=== PATIENT | female | born 1945 | race Hispanic/Latino ===

== ENCOUNTER → 2017-08-05 | Outpatient (CLI) | payer OTHER | END | disposition home or self-care (01) | LOC: RAH 08:07 | PROVIDERS: ATTEND Family Medicine | DX: Z12.31 Encounter for screening mammogram for malignant neoplasm of breast (principal) | CPT/HCPCS: 77067 ==

== ENCOUNTER → 2018-04-24 | Outpatient (CLI) | payer OTHER, MEDICARE | END | disposition home or self-care (01) | LOC: RAH 13:01 | PROVIDERS: ATTEND Family Medicine | DX: M79.605 Pain in left leg (principal) | CPT/HCPCS: 93971 ==

== ENCOUNTER → 2018-05-18 | Outpatient (CLI) | payer OTHER | END | disposition home or self-care (01) | LOC: OIH 13:27 | PROVIDERS: ATTEND Internal Medicine Cardiovascular Disease | DX: Z13.6 Encounter for screening for cardiovascular disorders (principal) | CPT/HCPCS: 75571 ==

== ENCOUNTER → 2018-06-09 | Outpatient (CLI) | payer OTHER ==
[~2018-06-09] VITALS: Ht 167.6 cm; Wt 116.1 kg
[~2018-06-09] MED LIST: REGADENOSON 0.4 MG/5 ML PF SYG IVP SCH
== END | disposition home or self-care (01) ==
LOC: SHCH 08:05
PROVIDERS: ATTEND Internal Medicine Cardiovascular Disease
DX: I25.10 Atherosclerotic heart disease of native coronary artery without angina pectoris (principal)
CPT/HCPCS: 78452; 93017; 96374; A9500 ×2; J2785

== ENCOUNTER → 2018-08-21 | Outpatient (CLI) | payer OTHER | END | disposition home or self-care (01) | LOC: RAH 09:35 | PROVIDERS: ATTEND Family Medicine | DX: Z12.31 Encounter for screening mammogram for malignant neoplasm of breast (principal) | CPT/HCPCS: 77067 ==

== ENCOUNTER → 2019-08-23 | Outpatient (CLI) | payer OTHER | END | disposition home or self-care (01) | LOC: RAH 10:24 | PROVIDERS: ATTEND Family Medicine | DX: Z12.31 Encounter for screening mammogram for malignant neoplasm of breast (principal) | CPT/HCPCS: 77067 ==

== ENCOUNTER 2024-12-12 11:15 | Inpatient (IN) | payer OTHER ==
[~2024-12-12] VITALS: Ht 167.6 cm; Wt 117.9 kg
--- NOTE | 2024-12-12 11:20 | NUR ---
PT GOING TO CT AT THIS TIME
--- NOTE | 2024-12-12 11:23 | ERN ---
General Chief Complaint: Stroke Symptoms Stated Complaint: STROKE SYMPTOMS Time Seen by MD: 11:19 Source: patient History of Present Illness Initial Comments Patient is a 79-year-old female coming in complaining of right facial numbness. Patient states that last night fell asleep without having these symptoms. Earlier this morning patient woke up with the symptoms. Allergies: Coded Allergies: No Known Drug Allergies (Verified Allergy, 11/06/12) Uncoded Allergies: MERY (Allergy, Mild, 11/08/12) ROS Dictation CONSTITUTIONAL: No chills, no fever, no weakness, no diaphoresis, no malaise. HEAD/FACE: No signs of trauma. EENT: No eye pain, no blurred vision, no tearing, no double vision, no ear pain, no ear discharge, no nose pain, no nasal congestion, no throat pain, no throat swelling, no mouth pain. RESPIRATORY: No cough, no orthopnea, no SOB, no stridor, no wheezing. CARDIOVASCULAR: No chest pain, no edema, no palpitations, no syncope. GASTROINTESTINAL/ABDOMINAL: No abdominal pain, no constipation, no diarrhea, no nausea, no vomiting. GENITOURINARY: No abnormal discharge, no dysuria, no frequent urination, no hematuria. No complaints of pain in the genitals. MUSCULOSKELETAL: No back pain, no gout, no joint pain, no joint swelling, no muscle pain, no muscle stiffness, no neck pain. INTEGUMENTARY: No change in color, no change in hair/nails, no dryness, no lesion, no lumps, no rash. NEUROLOGICAL/PSYCH: No anxiety, not depressed, no emotional problem, no headache, no numbness, no pre-existing deficit, no history of seizures, no tremors, no weakness. HEMATOLOGIC/LYMPHATIC: Not anemic, no history of blood clots, no apparent bleeding, no bruising, glands not swollen. All Systems Negative, Except as Noted. Physical Exam Physical Exam Dictation VITAL SIGNS: Reviewed. GENERAL APPEARANCE: Alert, oriented x3, no acute distress, obese. HEAD AND FACE: Non-traumatic. EYES: PERRL, pink conjunctivas, eyelid no trauma, anterior chamber clear. EARS: Pinnas intact and no signs of trauma or erythema. Ear canals clear and no discharge. TMs no erythema. NOSE: No discharge, no bleeding. OROPHARYNX: Mouth normal, teeth no caries, tongue pink. Pharynx clear, no erythema. Tonsils no exudates, no abscesses noted. Mucous membrane moist. NECK: Supple, non-tender, no thyromegaly, no masses, no JVD, no bruits. BREAST: Deferred. CHEST: No tenderness, no crepitus, no paradoxical movement, no retractions. LUNGS: Clear, well-ventilated, symmetric, no rales, no wheezing, no rhonchi, no stridor, good breath sounds bilaterally. HEART: Regular rate, regular rhythm, no murmur, no gallops. VASCULAR: No peripheral edema. ABDOMEN: Soft, positive bowel sounds, nondistended, no guarding, nontender, no rebound, no masses no hepatomegaly, no splenomegaly, no Koroma's sign, no her nias. RECTAL: Deferred. GENITAL: Deferred. NEUROLOGICAL: Normal speech, gross motor function intact, gross sensory function intact. MUSCULOSKELETAL: Neck nontender, full range of motion, back nontender, full range of motion. EXTREMITIES: Nontender, full range of motion. SKIN: Color pink, dry, no turgor, no rash, no lacerations, no abrasions, no contusions. LYMPHATICS: Deferred. Stroke Patient?: No Is Patient Candidate for t-PA?: No Did the Patient Receive t-PA?: No Contraindication for t-PA?: Medical Contraindication NIH STROKE SCALE: NIH STROKE SCALE Response (Comments) Value Level of Consciousness Alert 0 Ask patient month and their age Answers both correct 0 Command to open eyes, make fist and let go Obeys both correct 0 Best gaze (horizontal eye movement) Partial Gaze Palsy 1 Visual Field Testing No Visual Field Loss 0 Facial Paresis Partial Paralysis 2 Motor Function - Left Arm Normal 0 Motor Function - Right Arm Normal 0 Motor Function - Left Leg Normal 0 Motor Function - Right Leg Normal 0 Limb Ataxia No Ataxia 0 Sensory-pin prick to arms, legs, trunk and face Normal 0 Best Language (describe picture, name items and read) No Aphasia 0 Dysarthria (read several words) Normal Articulation 0 Extinction and Inattention Normal 0 Total 3 Results Laboratory and Microbiology Lab and Micro Result Laboratory Tests Test 12/12/24 11:19 12/12/24 11:32 12/12/24 13:25 Whole Blood Glucose 111 MG/DL (70-110) H White Blood Count 7.4 K/uL (4.8-10.8) Red Blood Count 4.43 MIL/uL (4.00-5.50) Hemoglobin 13.6 g/dL (12.0-16.0) Hematocrit 42.3 % (36-48) Mean Corpuscular Volume 95.5 fL (79-99) Mean Corpuscular Hemoglobin 30.7 pg (27.0-33.0) Mean Corpuscular Hemoglobin Concent 32.2 g/dL (32.0-36.0) Red Cell Distribution Width 12.2 % (11.0-15.5) Platelet Count 242 K/uL (130-400) Mean Platelet Volume 11.0 fL (7.5-10.5) H Immature Granulocyte % (Auto) 0.7 % (0-1) Neutrophils (%) (Auto) 52.6 % (40.0-77.0) Lymphocytes (%) (Auto) 31.2 % (21.0-51.0) Monocytes (%) (Auto) 12.5 % (3.0-13.0) Eosinophils (%) (Auto) 2.2 % (0.0-8.0) Basophils (%) (Auto) 0.8 % (0.0-5.0) Neutrophils # (Auto) 3.9 K/uL (1.8-7.7) Lymphocytes # (Auto) 2.3 K/uL (1.0-4.8) Monocytes # (Auto) 0.9 K/uL (0.1-1.0) Eosinophils # (Auto) 0.16 K/uL (0.00-0.70) Basophils # (Auto) 0.06 K/uL (0.00-0.20) Absolute Immature Granulocyte (auto 0.05 K/uL (0-1) Nucleated Red Blood Cells 0.0 % (0.0-0.19) Prothrombin Time 10.3 SEC (9.6-11.6) Prothromb Time International Ratio 0.97 (0.85-1.15) Activated Partial Thromboplast Time 27.3 SEC (26.3-35.5) Sodium Level 144 mmol/L (136-145) Potassium Level 3.8 mmol/L (3.5-5.1) Chloride Level 106 mmol/L (101-111) Carbon Dioxide Level 29 mmol/L (21-32) Blood Urea Nitrogen 16 mg/dL (7-18) Creatinine 0.7 mg/dL (0.5-1.0) Glomerular Filtration Rate Calc 88 mL/min (>90) Random Glucose 108 mg/dL (70-105) H Total Calcium 8.9 mg/dL (8.5-10.1) Total Creatine Kinase 28 U/L (21-232) Troponin I High Sensitivity 6 ng/L (4-50) LDL Cholesterol 149 mg/dL (0-99) H Urine Color LIGHT-YELLOW (YELLOW) Urine Appearance CLEAR (CLEAR) Urine pH 6.5 (5.0-8.0) Urine Specific [place] 1.010 (1.001-1.031) Urine Protein NEGATIVE mg/dL (NEGATIVE) Urine Glucose (UA) NEGATIVE mg/dL (NEGATIVE) Urine Ketones NEGATIVE mg/dL (NEGATIVE) Urine Occult Blood NEGATIVE (NEGATIVE) Urine Nitrate NEGATIVE (NEGATIVE) Urine Bilirubin NEGATIVE mg/dL (NEGATIVE) Urine Urobilinogen 0.2 mg/dL (0.2-1.0) Urine Leukocyte Esterase 250 [place]/uL (NEGATIVE) H Urine RBC 0-1 /HPF (0-1) Urine WBC 2-5 /HPF (0-1) H Urine Squamous Epithelial Cells RARE /HPF (0-2) Urine Non-Squamous Epithelial Cells <1 /HPF (0-2) Urine Bacteria None /HPF (None Seen) Labs Reviewed?: Yes EKG/XRAY/US/CT/MRI EKG Comment 12/12/2024 time 11:39 a.m. Ventricular rate [address] Sin[address] MD [address] wave elevation or depression X-RAY Comment IMAGING REPORT Signed PATIENT: XOCHITL HOUSER MR#: [id number] : 1945 SEX: F AGE: 79 LOCATION: [facility] ORDER [id number] STATUS: [facility] REPORT#: [id number] SERVICE [id number] REASON: stroke ORDERING PHYSICIAN: DIANE NASCIMENTO MD PROCEDURE: CXR1VW - CHEST 1VW EXAM: CR Chest, 1 View. CLINICAL HISTORY: stroke COMPARISON: None provided. FINDINGS: LUNGS: The lungs show no infiltrate or other acute finding. PLEURAL SPACES: No evidence of pleural effusion or pneumothorax. MEDIASTINUM: Cardiac size and mediastinal contours within normal limits. BONES: No aggressive appearing osseous lesion seen. IMPRESSION: No acute cardiopulmonary pathology is evident. /[place] DICTATED BY: QUIRINO SOOD Jr., MD DATE: 12/12/24 1351 ELECTRONICALLY SIGNED BY: QUIRINO SOOD Jr., MD DATE: 12/12/[address] Scan Comment [address] [address] IMAGING REPORT Signed PATIENT: XOCHITL HOUSER MR#: [id number] : 1945 SEX: F AGE: 79 LOCATION: [facility] ORDER [id number] STATUS: [facility] REPORT#: [id number] SERVICE 1116 REASON: RIGHT FACE NUMBNESS ORDERING PHYSICIAN: DIANE NASCIMENTO MD PROCEDURE: HEAD WO - CT HEAD/BRAIN W/O CONTRAST EXAM: Non-contrast CT examination of the Brain CLINICAL HISTORY: Right face numbness. TECHNIQUE: Thin collimated axial CT images of the brain were obtained, with sagittal and coronal reformatted images also submitted. CT scan done according to ALARA (As Low as Reasonably Achievable). CONTRAST USED: None. COMPARISON: None provided. FINDINGS: No acute intracranial abnormality is present. No acute cortical infarction, hemorrhage, mass, or mass effect. Small old ischemic changes in the left frontal periventricular white matter. No hydrocephalus or abnormal extra-axial fluid collections. The posterior fossa is unremarkable. The skull base and calvarium are intact. The included portions of the paranasal sinuses and left mastoid air cells are clear. Partial sclerosis of the right mastoid air cells. IMPRESSION: No acute intracranial abnormality is present. /[place] DICTATED BY: QUIRINO SOOD Jr., MD DATE: 12/12/24 1324 ELECTRONICALLY SIGNED BY: QUIRINO SOOD Jr., MD DATE: 12/12/24 1324 MDM MDM: Differential diagnosis: Ordoñez's palsy, CVA, UTI, hypertensive urgency, Rationale: Tests considered and ordered secondary to shared decision making include: labs, ECG and radiology Previous outside records reviewed: Old ER visits. Risk of complication and/or morbidity or mortality of patient management: None Medications-Per medication reconciliation Need for hospitalization: Patient does meet criteria for hospitalization. Need for emergency major/minor surgery: No There are no social concerns with this patient. Prescription drug management Prescriptions will include symptomatic care Patient's prior external medical records from other ER visits were reviewed by me as indicated. Prior testing and results from previous visits were reviewed. Prior tests were taken into account with medical decision making and resource utilization, independent historian/historians were used to obtain complete medical history. I independently interpreted the test that were performed, results were reviewed by me and considered findings on radiology if ordered. Medical management and examination interpretation discussions were had by me with other qualified healthcare professionals as indicated for the patient's care. Patient will be admitted under the care of [facility] for ongoing management. ED Course Orders Procedure Category Date Status Time Ct Head/Brain W/O CT 12/12/24 Resulted Contrast 11:16 Cbc With Differential LAB 12/12/24 Complete 11:19 Prothrombin Time With LAB 12/12/24 Complete INR 11:19 Partial LAB 12/12/24 Complete Thromboplastin Time 11:19 Chest 1vw RAD 12/12/24 Resulted 11:19 12 Lead Ekg Tracing- EKG 12/12/24 Complete Technical 11:19 Creatine Kinase, Total LAB 12/12/24 Complete 11:19 Ldl Direct LAB 12/12/24 Complete 11:19 Troponin I High LAB 12/12/24 Complete Sensitivity 11:19 Urinalysis Profile LAB 12/12/24 Complete 11:19 Bedside Glucose CPOE 12/12/24 Transmitted Fingerstick 11:19 Basic Metabolic Panel LAB 12/12/24 Complete 11:19 Clonidine Hcl 0.1 Mg PHA 12/12/24 Complete Tablet (Catapres 0. 12:30 Hydralazine 20mg Inj PHA 12/12/24 Complete (Apresoline 20mg In 13:30 Hydralazine 20mg Inj PHA 12/12/24 Complete (Apresoline 20mg In 13:30 Culture Urine NICOLE 12/12/24 In Process 13:45 Ceftriaxone 1g Vial PHA 12/12/24 In Process (Rocephine 1g Inj) 14:30 Current Medications Medications (Trade) Dose Ordered Sig/Estela Route PRN Reason Start Time Stop Time Status Last Admin Dose Admin Ceftriaxone Sodium (ROCEphine 1G INJ) 1 gm ONCE ONCE IVPB 12/12/24 14:30 12/12/24 14:31 Clonidine HCl (CATApres 0.1 mg TAB) 0.1 mg ONCE ONCE PO 12/12/24 12:30 12/12/24 12:31 DC 12/12/24 12:41 Hydralazine HCl (APRESOLine 20MG INJ) 10 mg ONCE ONCE IV 12/12/24 13:30 12/12/24 13:32 DC 12/12/24 13:44 Hydralazine HCl (APRESOLine 20MG INJ) 20 mg STK-MED ONCE .ROUTE 12/12/24 13:30 12/12/24 13:30 DC Vital Signs Date Time Temp Pulse Resp B/P (MAP) Pulse Ox O2 Delivery O2 Flow Rate FiO2 12/12/24 13:50 57 16 137/53 99 Room Air* 0 21 12/12/24 13:44 59 207/89 12/12/24 13:11 57 18 179/81 99 Room Air* 0 21 12/12/24 12:41 98.4 63 16 191/84 99 Room Air* 0 21 12/12/24 12:41 191/84 12/12/24 12:09 66 16 192/79 99 Room Air* 0 21 12/12/24 11:42 98.4 69 15 207/85 99 Room Air 0 12/12/24 11:42 98.4 65 16 207/85 99 Room Air* 0 21 Critical Care Note Comments Critical Care Procedure Note Authorized and Performed by: me Total critical care time: Approximately 36 minutes Due to a high probability of clinically significant, life threatening deterioration, the patient required my highest level of preparedness to intervene emergently and I personally spent this critical care time directly and personally managing the patient. This critical care time included obtaining a history; examining the patient; pulse oximetry; ordering and review of studies; arranging urgent treatment with development of a management plan; evaluation of patient's response to treatment; frequent reassessment; and, discussions with other providers. This critical care time was performed to assess and manage the high probability of imminent, life-threatening deterioration that could result in multi-organ failure. It was exclusive of separately billable procedures and treating other patients and teaching time. Please see MDM section and the rest of the note for further information on patient assessment and treatment. DX & DISP Disposition: Inpatient Decision to Admit Time: 14:21 Departure Impression: Primary Impression: UTI (urinary tract infection) Additional Impressions: Hypertensive emergency, Ordoñez's palsy Condition: Stable Referrals: JOSLYN SORIA MD (PCP) DIANE NASCIMENTO MD Dec 12, 2024 11:23
[2024-12-12 11:51] LABS: IMMATURE GRANULOCYTE ABSOLUTE 0.05 K/uL (0-1); NUCLEATED RED BLOOD CELLS 0.0 % (0.0-0.19); PLATELET COUNT (AUTO) 242 K/uL (130-400); RED BLOOD CELL COUNT(AUTO) 4.43 MIL/uL (4.00-5.50); RED CELL DISTRIBUTION WIDTH 12.2 % (11.0-15.5); WHITE BLOOD COUNT (AUTO) 7.4 K/uL (4.8-10.8)
--- NOTE | 2024-12-12 11:51 | CONS ---
CONSULT NOTE: [place] [facility] Note # Demographics Consult Type: Acute Stroke Level 2 (4.5-24 hrs) Patient Location: Emergency Room First Name: XOCHITL Last Name: CORRINA Date of : 1945 Age: 79 Gender: Female Facility: [facility] Time of Initial Page (Central Time): 12/12/2024 11:22 First Contact with Site (Central Time): 12/12/2024 11:22 # HPI History: 79 y/o woman with right facial weakness. Last normal yesterday at 8 PM. Similar symptoms previously. No pain behind the right ear. # Scores Time of exam and NIHSS (Central Time): 12/12/2024 11:35 Level of Consciousness 1a: [0] = Alert; keenly responsive LOC Questions 1b: [0] = Answers both questions correctly LOC Commands 1c: [0] = Performs both tasks correctly Best Gaze 2: [0] = Normal Visual 3: [0] = No visual loss Facial Palsy 4: [2] = Partial paralysis Motor Arm Left 5a: [0] = No drift Motor Arm Right 5b: [0] = No drift Motor Leg Left 6a: [0] = No drift Motor Leg Right 6b: [0] = No drift Limb Ataxia 7: [0] = Absent Sensory 8: [0] = Normal Best Language 9: [0] = No aphasia Dysarthria 10: [0] = Normal Extinction and Inattention 11: [0] = No abnormality NIHSS Total: 2 # Exam Cranial Nerves: right upper and lower facial weakness # Data Head CT: - no bleed # Assessment Impression: - [place] Palsy # Plan Thrombolytic/Intervention: NOT IV Thrombolysis or IA Intervention candidate Thrombolytic Exclusion: > 4.5 hours Intraarterial Exclusion: - clinical exam not consistent with presence of large vessel occlusion (LVO), can reconsider if LVO found on vascular imaging Other: - If patient has any neurological deterioration please call me back immediately - I have discussed my recommendations with the referring provider Additional Recommendations: Empiric treatment for Ordoñez's palsy with steroids. # Logistics Attestation of consult completion: The patient is located at: [facility]. Facility staff participated in the visit. I performed this telemedicine visit from my offsite office utilizing interactive 2 way audio and visual telecommunication technology at the request of the onsite emergency room provider. Total time spent in telemedicine encounter: I spent 15 minutes reviewing clinical data and/or imaging, obtaining history, examining the patient, communicating with the onsite care team, and in preparation of this report. # Demographics First Name: XOCHITL Last Name: CORRINA Facility: [facility] AILIN JAMES MD Dec 12, 2024 11:51
--- NOTE | 2024-12-12 11:54 | EKG ---
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
[2024-12-12 11:56] LABS: CREATININE 0.7 mg/dL (0.5-1.0); GLOMERULAR FILTR. RATE CALC 88.0 mL/min (>90); GLUCOSE,RANDOM 108.0 mg/dL (70-105); SODIUM SERUM 144.0 mmol/L (136-145); UREA NITROGEN, BLOOD 16.0 mg/dL (7-18)
[2024-12-12 12:01] LABS: CREATINE KINASE, TOTAL 28.0 U/L (21-232); LDL DIRECT 149.0 mg/dL (0-99)
[2024-12-12 12:16] LABS: INR 0.97 (0.85-1.15)
--- NOTE | 2024-12-12 12:24 | HMCIMG ---
EXAM: Non-contrast CT examination of the Brain CLINICAL HISTORY: Right face numbness. TECHNIQUE: Thin collimated axial CT images of the brain were obtained, with sagittal and coronal reformatted images also submitted. CT scan done according to ALARA (As Low as Reasonably Achievable). CONTRAST USED: None. COMPARISON: None provided. FINDINGS: No acute intracranial abnormality is present. No acute cortical infarction, hemorrhage, mass, or mass effect. Small old ischemic changes in the left frontal periventricular white matter. No hydrocephalus or abnormal extra-axial fluid collections. The posterior fossa is unremarkable. The skull base and calvarium are intact. The included portions of the paranasal sinuses and left mastoid air cells are clear. Partial sclerosis of the right mastoid air cells. IMPRESSION: No acute intracranial abnormality is present. /[place]
--- NOTE | 2024-12-12 12:52 | HMCIMG ---
EXAM: CR Chest, 1 View. CLINICAL HISTORY: stroke COMPARISON: None provided. FINDINGS: LUNGS: The lungs show no infiltrate or other acute finding. PLEURAL SPACES: No evidence of pleural effusion or pneumothorax. MEDIASTINUM: Cardiac size and mediastinal contours within normal limits. BONES: No aggressive appearing osseous lesion seen. IMPRESSION: No acute cardiopulmonary pathology is evident. /[place]
[2024-12-12 13:42] LABS: APPEARANCE,URINE CLEAR (CLEAR); GLUCOSE, URINE (UA) NEGATIVE (NEGATIVE); LEUKOCYTE ESTERASE ,URINE 250 Leu/uL (NEGATIVE); NITRATE,URINE NEGATIVE (NEGATIVE); OCCULT BLOOD,URINE NEGATIVE (NEGATIVE)
[2024-12-12 13:45] LABS: ADD UA MICROSCOPIC YES
[2024-12-12 13:56] LABS: NON-SQUAMOUS EPITHELIAL CELL <1 /HPF (0-2); SQUAMOUS EPITHELIAL CELL,UR RARE /HPF (0-2)
[2024-12-12] MEDS ORDERED: LIDOCAINE HCL 2% VISCOUS 30 ML, MAG/ALUM/SIMETH 30ML 30 ML, DICYCLOMINE HCL 20 MG PO PRN (15:00)
[2024-12-12] MEDS ORDERED: guaiFENesin-DM 200/20MG 10ML PO PRN (15:00)
[2024-12-12] MEDS ORDERED: ARTIFICAL TEARS SOL 15 ML OP PRN (15:00)
[2024-12-12] MEDS ORDERED: LOPERAMIDE HCL 2 MG CAP PO PRN (15:00)
[2024-12-12] MEDS ORDERED: BENZOCAINE/MENTH/CETYLPYRD CL 1 EACH LOZENGE MM PRN (15:00)
[2024-12-12] MEDS ORDERED: LACTULOSE 20 GM/30 ML UDCUP PO PRN (15:00)
[2024-12-12] MEDS ORDERED: NITROGLYCERIN 0.4 MG SL TAB SL PRN (15:00)
[2024-12-12] MEDS ORDERED: MAG/ALUM/SIMETH 30 ML UDCUP PO PRN (15:00)
--- NOTE | 2024-12-12 15:22 | NUR ---
BENCHMARK ZIGZAG TOPSTITCHER AT BEDSIDE
--- NOTE | 2024-12-12 15:51 | HP ---
[facility] HISTORY & PHYSICAL Date Patient Seen: Dec 12, 2024 Time of Visit: 15:51 Supervising Physician: Dr. Maurilio Macario Primary Care Physician: Dr. Huang Corado Outpatient Specialists: [ ] Inpatient Consults: [ ] PROBLEM LIST: 1. Suspect CVA vs TIA 2. Hypertension emergency 3. Hyperlipidemia 4 Obesity, BMI 42.0 5. Acute complicated cystitis HPI: Rain Chambers is an 78-year-old lady, patient of Dr. Cedric Corado, health history: Hypertension, hyperlipidemia, morbid obesity, and with the last known well time, yesterday evening, 12/11/2024 at approximately 9:30 p.m. the patient presents to the emergency department today after unsuccessfully trying to see her PCP because of stroke-like symptoms that were 1st observe this morning around 730. The patient's daughter reports that the patient has had right eye droop and right facial droop occurring at that time. The patient denied headache, chest pain, fever, chills, and nauseousness currently. The NIH score on arrival 3. Vital signs: Temperature 98.4, pulse 65, respiration 16, blood pressure 207/85, pulse ox 99 on room air FiO2 21. Laboratory results: WBC 7.4, hemoglobin 13.6, hematocrit 42.3%, platelets 242, sodium 144, potassium 3.8, carbon dioxide 29, BUN 16, creatinine 0.7, GFR 88, random blood glucose 108, troponin six, LDL 149, Urine, urinalysis: Leukocyte esterase 250, nitrate negative, and occult blood negative. EKG, results: No ST segment elevation or depression. Ventricle rate. [address] head without contrast impressions: No acute intracranial abnormality present. CXR one view: No acute cardiopulmonary pathology is evident. Patient was assessed blood pressure has been reduced, patient still has noticeable right-sided facial droop and right eyelid droop patient still reports feeling facial numbness on the right side. Based upon these abnormal assessment findings and after discussing with my supervising physician the following plan was developed in implemented. Plan: Patient will need a neuro consult, hospital does not have a neurologist, spoke with supervising physician, Dr.Ammar Macario, plan is to transfer the patient to [facility], ED to ED transfer has been initiated upon arrival the stroke team we will be notified for clinical workup. PAST MEDICAL HX: see above PAST SURGICAL HX: noncontributory SOCIAL HISTORY: No tobacco, ETOH, or illicit drug use Coded Allergies: No Known Drug Allergies (Verified Allergy, 11/06/12) Uncoded Allergies: MERY (Allergy, Mild, 11/08/12) REVIEW OF SYSTEMS: 12 point ROS reviewed with patient. Pertinent positives mentioned above. Otherwise negative. PHYSICAL EXAM: GENERAL: alert, awake, oriented with right-sided facial droop HEENT: EOMI, Sclera non icteric, moist mucosa NECK: Supple, no JVD, trachea midline LUNGS: Clear breath sounds bilaterally. No wheezes HEART: Regular rate and rhythm. Normal S1 and S2, without murmurs ABD: Abdomen soft, nontender. Bowel sounds present EXT: No clubbing cyanosis or edema NEURO: Alert and oriented to person, follows commands Vital Signs (last 8hr) Date Time Temp Pulse Resp B/P (MAP) Pulse Ox O2 Delivery O2 Flow Rate FiO2 12/12/24 14:58 98.4 60 16 131/54 99 Room Air* 0 21 12/12/24 13:50 57 16 137/53 99 Room Air* 0 21 12/12/24 13:44 59 207/89 12/12/24 13:11 57 18 179/81 99 Room Air* 0 21 12/12/24 12:41 98.4 63 16 191/84 99 Room Air* 0 21 12/12/24 12:41 191/84 12/12/24 12:09 66 16 192/79 99 Room Air* 0 21 12/12/24 11:42 98.4 69 15 207/85 99 Room Air 0 12/12/24 11:42 98.4 65 16 207/85 99 Room Air* 0 21 LABS: Hematology Labs: Test 12/12/24 11:32 Range/Units White Blood Count 7.4 4.8-10.8 K/uL Red Blood Count 4.43 4.00-5.50 MIL/uL Hemoglobin 13.6 12.0-16.0 g/dL Hematocrit 42.3 36-48 % Mean Corpuscular Volume 95.5 79-99 fL Mean Corpuscular Hemoglobin 30.7 27.0-33.0 pg Mean Corpuscular Hemoglobin Concent 32.2 32.0-36.0 g/dL Red Cell Distribution Width 12.2 11.0-15.5 % Platelet Count 242 130-400 K/uL Mean Platelet Volume 11.0 H 7.5-10.5 fL Immature Granulocyte % (Auto) 0.7 0-1 % Neutrophils (%) (Auto) 52.6 40.0-77.0 % Lymphocytes (%) (Auto) 31.2 21.0-51.0 % Monocytes (%) (Auto) 12.5 3.0-13.0 % Eosinophils (%) (Auto) 2.2 0.0-8.0 % Basophils (%) (Auto) 0.8 0.0-5.0 % Neutrophils # (Auto) 3.9 1.8-7.7 K/uL Lymphocytes # (Auto) 2.3 1.0-4.8 K/uL Monocytes # (Auto) 0.9 0.1-1.0 K/uL Eosinophils # (Auto) 0.16 0.00-0.70 K/uL Basophils # (Auto) 0.06 0.00-0.20 K/uL Absolute Immature Granulocyte (auto 0.05 0-1 K/uL Nucleated Red Blood Cells 0.0 0.0-0.19 % Chemistry Labs: Test 12/12/24 11:32 12/12/24 11:19 Range/Units Sodium Level 144 136-145 mmol/L Potassium Level 3.8 3.5-5.1 mmol/L Chloride Level 106 101-111 mmol/L Carbon Dioxide Level 29 21-32 mmol/L Blood Urea Nitrogen 16 7-18 mg/dL Creatinine 0.7 0.5-1.0 mg/dL Glomerular Filtration Rate Calc 88 >90 mL/min Random Glucose 108 H 70-105 mg/dL Total Calcium 8.9 8.5-10.1 mg/dL Total Creatine Kinase 28 21-232 U/L Troponin I High Sensitivity 6 4-50 ng/L LDL Cholesterol 149 H 0-99 mg/dL Whole Blood Glucose 111 H 70-110 MG/DL Coagulation Labs: Test 12/12/24 11:32 Range/Units Prothrombin Time 10.3 9.6-11.6 SEC Prothromb Time International Ratio 0.97 0.85-1.15 Activated Partial Thromboplast Time 27.3 26.3-35.5 SEC DIAGNOSTICS / RADIOLOGY RESULTS: [ ] PLAN Patient will be transferred to [facility] for further stroke workup, emergency room to emergency room transfer has been requested stat NEURO: Minimize central acting medications as possible. Maintain fall precautions, adequate lighting during the day PULMONARY: Supplemental 02 as needed. Maintain aspiration precautions at all times CARDIOVASCULAR: Follow hemodynamics. Vital signs per facility protocol GI & NUTRITION: Continue with nutritional support. Continue stool softeners and laxatives as needed. KIDNEYS & ELECTROLYTES: Strict monitoring of intake, output and overall fluid balance. Avoid nephrotoxic medications to the extent possible. Medications to be dosed according to renal function. Monitor electrolytes and replace as needed ENDOCRINE: Maintain blood glucose between 100-180 at all times. Hypoglycemia protocol in place INFECTIOUS DISEASE: Trend temperature, WBC and procalcitonin level Follow cultures, deescalate antibiotics as soon as possible. Panculture if new onset fever ONCOLOGY/HEMATOLOGY/COAGULATION: Monitor for s/s of bleeding Monitor hemoglobin, coagulation studies as needed SKIN: Pressure ulcer prevention per facility protocol Specialty mattress ORTHO/REHAB: Continue PT/OT Prophylaxis: Continue GI and DVT prophylaxis Code Status: Full Resuscitation Disposition: TBD Other: Total patient care time exceeds 35 minutes excluding all procedures. CHRISSY SEBASTIAN AGACNP Dec 12, 2024 15:51
--- NOTE | 2024-12-12 16:11 | NUR ---
DCP:HOME Pt currently lives at home with her Skyler Chambers [phone]. pt does not have any DME, home health, or provider services. Pt is able to complete ADLs independently. PCP is Dr. Corado and uses [facility] for any RX needs. At [place] pt will want to go home and family can assist with transportation. Addendum: 12/12/24 at 1614 by GUILLERMINA DOMINGO SS Amended: Links added.
--- NOTE | 2024-12-12 16:26 | NUR ---
RECRUITING COORDINATOR AWARE OF TRANSFER
--- NOTE | 2024-12-12 17:32 | HMCIMG ---
EXAM: US Duplex Bilateral Carotid and Vertebral Arteries. CLINICAL HISTORY: Status post stroke-like symptoms on presentation. Assessment of carotid arterial system. TECHNIQUE: Real-time ultrasound scan of the bilateral carotid and vertebral arteries performed using 2-D vang scale imaging, color Doppler flow, and spectral waveform analysis. COMPARISON: None provided. FINDINGS: Multifocal small calcified plaques are seen along the bilateral carotid bulb area RIGHT COMMON CAROTID ARTERY (CCA): Peak systolic velocity (PSV): 70 cm/s No occlusion or significant stenosis. RIGHT INTERNAL CAROTID ARTERY (ICA): PSV: 74 cm/s ICA/CCA ratio: 1.02 No occlusion or significant stenosis. RIGHT EXTERNAL CAROTID ARTERY (ECA): PSV: 180 cm/s No occlusion or significant stenosis. RIGHT VERTEBRAL ARTERY: Vertebral flow velocity: 64 cm/s Flow direction: Antegrade No retrograde flow, not absent. LEFT COMMON CAROTID ARTERY (CCA): PSV: 85 cm/s No occlusion or significant stenosis. LEFT INTERNAL CAROTID ARTERY (ICA): PSV: 100 cm/s ICA/CCA ratio: 1.2 No occlusion or significant stenosis. LEFT EXTERNAL CAROTID ARTERY (ECA): PSV: 169 cm/s No occlusion or significant stenosis. LEFT VERTEBRAL ARTERY: Vertebral flow velocity: 56 cm/s Flow direction: Antegrade No retrograde flow, not absent. IMPRESSION: 1. No hemodynamically significant stenosis in the bilateral carotid or vertebral arteries. 2. Multifocal small calcified plaques in the bilateral carotid bulb area. /Arion
--- NOTE | 2024-12-12 18:11 | DS ---
[facility] DISCHARGE SUMMARY Date Patient Seen: Dec 12, 2024 Time of Visit: 18:11 Supervising Physician: Dr. Maurilio Macario Primary Care Physician: Dr. Huang Corado Outpatient Specialists: [ ] Inpatient Consults: [ ] PROBLEM LIST: 1. Suspect CVA vs TIA 2. Hypertension emergency 3. Hyperlipidemia 4 Obesity, BMI 42.0 5. Acute complicated cystitis HOSPITAL COURSE: The patient will be transferred to [facility], because hospital has stroke team on staff, strongly suspected the patient has had CVA verse TIA. Patient required immediate stroke workup including and not limited to MRA of the brain, CTA of the head and neck, and 2D echo. HPI (per admitting provider) Rain Chambers is an 78-year-old lady, patient of Dr. Cedric Corado, health history: Hypertension, hyperlipidemia, morbid obesity, and with the last known well time, yesterday evening, 12/11/2024 at approximately 9:30 p.m. the patient presents to the emergency department today after unsuccessfully trying to see her PCP because of stroke-like symptoms that were 1st observe this morning around 730. The patient's daughter reports that the patient has had right eye droop and right facial droop occurring at that time. The patient denied headache, chest pain, fever, chills, and nauseousness currently. The NIH score on arrival 3. Vital signs: Temperature 98.4, pulse 65, respiration 16, blood pressure 207/85, pulse ox 99 on room air FiO2 21. Laboratory results: WBC 7.4, hemoglobin 13.6, hematocrit 42.3%, platelets 242, sodium 144, potassium 3.8, carbon dioxide 29, BUN 16, creatinine 0.7, GFR 88, random blood glucose 108, troponin six, LDL 149, Urine, urinalysis: Leukocyte esterase 250, nitrate negative, and occult blood negative. EKG, results: No ST segment elevation or depression. Ventricle rate. [address] head without contrast impressions: No acute intracranial abnormality present. CXR one view: No acute cardiopulmonary pathology is evident. Patient was assessed blood pressure has been reduced, patient still has noticeable right-sided facial droop and right eyelid droop patient still reports feeling facial numbness on the right side. Based upon these abnormal assessment findings and after discussing with my supervising physician the following plan was developed in implemented. Plan: Patient will need a neuro consult, hospital does not have a neurologist, spoke with supervising physician, Dr.Ammar Macario, plan is to transfer the patient to [facility], ED to ED transfer has been initiated upon arrival the stroke team we will be notified for clinical workup. 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 PCP notified of patients admission, hospital course and discharge. PHYSICAL EXAM: GENERAL: alert, awake, oriented with right-sided facial droop HEENT: EOMI, Sclera non icteric, moist mucosa NECK: Supple, no JVD, trachea midline LUNGS: Clear breath sounds bilaterally. No wheezes HEART: Regular rate and rhythm. Normal S1 and S2, without murmurs ABD: Abdomen soft, nontender. Bowel sounds present EXT: No clubbing cyanosis or edema NEURO: Alert and oriented to person, follows commands FOLLOW-UP: Patient and daughter at bedside agree with the transfer to hospital which has a neurologist on staff and we can get the diagnostic tests ordered and interpreted and develop a plan of treatment for the patient. RECOMMENDATIONS: See Discharge Instructions This case was seen and discussed with my supervising physician. More than 30 minutes spent on discharge process, including evaluation of the patient, discussion with nursing staff, medication reconciliation and follow-up appointments CHRISSY SEBASTIAN [facility] Dec 12, 2024 18:11
--- NOTE | 2024-12-12 19:56 | NUR ---
TRANSFER PT. ACCEPTED @ 1847 BY AMINTA MEADOWS [place] [facility] [place]ED ASSIGNMENT AT THIS TIME: 1318 BED 1. REPORT:[id number]
--- NOTE | 2024-12-12 19:59 | NUR ---
EMS CALL PLACED TO [facility] FOR TRANSPORT--PLACED ON "HOLD" THEN DISCONNECTED
--- NOTE | 2024-12-12 20:19 | NUR ---
EMS [facility] CALLED FOR TRANSPORT OF MONITORED NEUROLOGY PT.
--- NOTE | 2024-12-12 20:47 | NUR ---
EMS CALLED FOR PAITENT TRANSFER.
[2024-12-12 21:02] VITALS: BP 149/75; PULSE 64; RESP 18; TEMP 98.2; O2SAT 98
--- NOTE | 2024-12-12 21:08 | NUR ---
[facility] HERE FOR TRANSPORT.
--- NOTE | 2024-12-12 21:19 | NUR ---
REPORT CALLED TO CAMILO MITCHELL AT ROOM [address] [facility].
== END 2024-12-12 21:30 | disposition short-term general hospital (02) | DRG 690 ==
LOC: EDH 11:15 → EDHIP 14:47
PROVIDERS: ADMIT Internal Medicine Critical Care Medicine; ATTEND Internal Medicine Critical Care Medicine
DX: N30.00 Acute cystitis without hematuria (principal); G45.9 Transient cerebral ischemic attack, unspecified; I16.1 Hypertensive emergency; Z68.41 Body mass index [BMI] 40.0-44.9, adult; G51.0 Bell's palsy; E66.01 Morbid (severe) obesity due to excess calories; E78.5 Hyperlipidemia, unspecified; H02.401 Unspecified ptosis of right eyelid; I10 Essential (primary) hypertension; Z79.899 Other long term (current) drug therapy
CPT/HCPCS: 36415; 70450; 71045; 80048; 81001; 82550; 82948; 83721; 84484; 85025; 85610; 85730; 87086; 93005; 93880; 96374; 99291; G0378; J0360; J0696